=== PATIENT | male | born 1955 | race Caucasian/White ===

== ENCOUNTER 2016-12-30 07:11 | Day surgery (SDC) | payer MEDICARE, MEDICAID ==
[2016-12-29 11:48] VITALS: BMI 30.9
[~2016-12-30] VITALS: Ht 177.8 cm; Wt 86.5 kg
[2016-12-30] VITALS (11 sets, daily range): BP systolic 115–131; BP diastolic 62–79; PULSE 57–80; RESP 16–22; Ht 177.8 cm; Wt 86.5 kg
[~2016-12-30 07:11] MED LIST: AZIT250T94 PO; CEFAZOLIN 2 GM/50 ML (PMX) 50 ML IVPB SCH; HYDR-3498 PO; HYDR-902 PO; OMEP40CA3; SOD CHLORIDE 0.9% 1,000 ML IV SCH; iron PO; ranitidine
[2016-12-30] MEDS ORDERED: SUCR1TAB56 PO (08:14)
[2016-12-30 08:40] LABS: ADD SCAN DIFF NO
[2016-12-30 08:46] LABS: BASOPHILS % 0.6 % (0.0-2.0); EOSINOPHILS # 0.2 10^3/ul (0.0-0.5); EOSINOPHILS % 3.6 % (0.0-7.0); HEMATOCRIT 44.4 % (42.0-52.0); HEMOGLOBIN 14.9 g/dl (14.0-18.0); LYMPHOCYTES # 1.5 10^3/ul (0.8-2.9); LYMPHOCYTES % 28.8 % (15.0-51.0); MEAN CORPUSCULAR HEMOGLOBIN 31.8 pg (29.0-33.0); MEAN CORPUSCULAR HGB CONC 33.6 g/dl (32.0-37.0); MEAN CORPUSCULAR VOLUME 94.9 fl (82.0-101.0); MEAN PLATELET VOLUME 9.9 fl (7.4-10.4); MONOCYTE # 0.7 10^3/ul (0.3-0.9); MONOCYTES % 12.4 % (0.0-11.0); NEUTROPHIL # 2.9 10^3/ul (1.6-7.5); PLATELET COUNT 186 10^3/UL (140-415); RED BLOOD COUNT 4.68 10^6/ul (4.70-6.10); RED CELL DISTRIBUTION WIDTH 14.6 % (11.5-14.5); WHITE BLOOD COUNT 5.3 10^3/ul (4.8-10.8)
[2016-12-30 09:03] LABS: CALCIUM 9.8 mg/dl (8.4-10.2); CREATININE 0.99 mg/dl (0.61-1.24); POTASSIUM 4.4 mmol/L (3.5-5.1)
--- NOTE | 2016-12-30 09:19 | RADRPT ---
PROCEDURE: XR Chest. CLINICAL INDICATION: chest pain TECHNIQUE: Single frontal view of the chest was obtained COMPARISON: 11/17/14 FINDINGS: The heart and mediastinum are within normal limits. There is a left chest wall port in place. The lungs are clear. There is no pleural effusion or pneumothorax. RPTAT: AA IMPRESSION: No acute disease. .Lenny Ellison MD, MD Date Time Electronically viewed and signed by .Lenny Ellison MD, on 12/30/2016 09:19 .S/
[2016-12-30] MEDS ORDERED: LIDOCAINE 1% (STERILE-PAK) 30 ML INJ ONE (09:30)
[2016-12-30 09:45] LABS: INR 1.03; PROTIME 13.5 Sec (12.2-14.2); PT RATIO 1.1
[2016-12-30] MEDS ORDERED: FENTAnyl 50 MCG/ML VIAL ONE (09:56)
[2016-12-30] MEDS ORDERED: SUCCINYLCHOLINE CHLORIDE 100 MG/5 ML SYG IV ONE (10:14)
[2016-12-30] MEDS ORDERED: LIDOCAINE 2% (SDV) 5 ML INJ ONE (10:14)
[2016-12-30] MEDS ORDERED: CEFAZOLIN 1 GM INJ ONE (10:14)
[2016-12-30] MEDS ORDERED: PROPOFOL 40 ML ONE (10:14)
--- NOTE | 2016-12-30 10:59 | OPR ---
DATE OF OPERATION: 12/30/2016 PREOPERATIVE DIAGNOSIS: History of gastric cancer, need for chemo port removal. POSTOPERATIVE DIAGNOSIS: History of gastric cancer, need for chemo port removal. OPERATION PERFORMED: Removal of chemo port, left subclavian position. ANESTHESIA: General. ANESTHESIOLOGIST: Dr. Hayes SURGEON: Johnny Meyers MD ROOF FOREMAN: Dr. Scruggs INDICATIONS FOR PROCEDURE: The patient is a 61-year-old male, previously treated for gastric cancer . He has completed his treatment and requested port removal. He consented and was [facility]. DESCRIPTION OF PROCEDURE: The patient was brought to the operating theater and placed under general endotracheal tube anesthesia. The left anterior thorax was shaved, prepped and draped in the usual sterile fashion. The previous surgical incisional scar was reincised with a 15 blade scalpel. Sub cutaneous tissue was dissected with cautery. The pseudocapsule surrounding the port was incised. T he fixation sutures were then transected. The port was gently removed while pressure was held in the left infraclavicular location. Minimal bleeding was controlled with cautery, and the skin was then reapproximated with a 4-0 Vicryl suture in subcuticular fashion. Benzoin and Steri-Strips were patrick lied. Patient tolerated the procedure well. Estimated blood loss was 5 mL. There were no complica tions and the patient was transported in stable condition to the recovery room. Dictated By: JOHNNY MARTINEZ/JARED Conf#: [id number] DID#: [id number]
--- NOTE | 2016-12-30 14:13 | RADRPT ---
Vent Rate: 60 bpm RR Interval: 0 msec WA Interval: 190 msec QRS Duration: 92 msec QT Interval: 414 msec QTC Interval: 414 msec P-R-T [place]: 35 - 77 - 55 degrees Normal sinus rhythm Incomplete right bundle branch block Borderline ECG Electronically Signed By: Hamzah Patrick [id number]
== END 2016-12-30 12:05 | disposition home or self-care (01) ==
LOC: SDS 07:11
PROVIDERS: ATTEND Surgery Surgical Oncology
DX: Z45.2 Encounter for adjustment and management of vascular access device (principal); Z85.028 Personal history of other malignant neoplasm of stomach; I10 Essential (primary) hypertension
CPT/HCPCS: 36590; 71010; 80048; 85025; 85610; 85730; 88300; 93005; J0330; J0690; J3010

== ENCOUNTER 2017-09-29 23:47 | Emergency (ER) | END 2017-09-30 03:55 | disposition home or self-care (01) ==

== ENCOUNTER 2018-03-18 09:39 | Emergency (ER) | END 2018-03-18 14:43 | disposition home or self-care (01) ==